=== PATIENT | male | born 2005 | race Caucasian/White ===

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

== ENCOUNTER 2024-07-28 15:18 | Emergency (ER) | payer OTHER, MEDICAID ==
[~2024-07-28] VITALS: Ht 170.2 cm; Wt 74.4 kg
[2024-07-28 15:29] VITALS: TEMP 98.8
[2024-07-28] MEDS ORDERED: IBUP-1985 PO (15:56)
[2024-07-28] MEDS ORDERED: METH-798 PO (15:56)
[2024-07-28 16:16] VITALS: BP 118/76; PULSE 72; RESP 16; O2SAT 95
== END 2024-07-28 16:34 | disposition home or self-care (01) ==
LOC: ER 15:18
DX: S13.4XXA Sprain of ligaments of cervical spine, initial encounter (principal); Z79.1 Long term (current) use of non-steroidal anti-inflammatories (NSAID); Z79.899 Other long term (current) drug therapy; V89.2XXA Person injured in unspecified motor-vehicle accident, traffic, initial encounter; Y93.89 Activity, other specified; Y92.89 Other specified places as the place of occurrence of the external cause; Y99.8 Other external cause status
CPT/HCPCS: 99283

== ENCOUNTER 2025-08-28 19:00 | Emergency (ER) | payer MEDICAID, OTHER ==
[~2025-08-28] VITALS: Ht 170.2 cm; Wt 71.0 kg
[~2025-08-28 19:00] MED LIST changes: +IBUP600T52 PO; +METH-798 PO
[2025-08-28 19:08] VITALS: BP 105/58; PULSE 82; RESP 18; O2SAT 99
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
--- NOTE | 2025-08-28 20:10 | RADIOLOGY REPORT ---
CLINICAL HISTORY: Traumatic injury, pain TECHNIQUE: 4 views of the right knee were obtained. WID: COMPARISON: KNEE, COMP 4 VW MIN on DOS: 07/06/21 FINDINGS: Normal mineralization alignment. Joint spaces are preserved. There is no acute fracture. Overlying soft tissues are intact. No joint effusion. IMPRESSION: 1. No acute osseous abnormality.
[2025-08-28 21:57] VITALS: TEMP 98.1
== END 2025-08-28 22:03 | disposition home or self-care (01) ==
LOC: ER 19:00
DX: M25.561 Pain in right knee (principal); Z79.899 Other long term (current) drug therapy
CPT/HCPCS: 29530; 73564; 99283; A6258; A6449

== ENCOUNTER 2025-09-05 14:12 | Emergency (ER) | payer MEDICAID, OTHER ==
[~2025-09-05] VITALS: Ht 167.6 cm; Wt 64.5 kg
[2025-09-05 14:25] VITALS: BP 110/69; PULSE 75; RESP 18; TEMP 98.4; O2SAT 99
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
== END 2025-09-05 16:12 | disposition home or self-care (01) ==
LOC: ER 14:13
DX: M25.561 Pain in right knee (principal); W19.XXXA Unspecified fall, initial encounter; Y93.89 Activity, other specified; Y92.89 Other specified places as the place of occurrence of the external cause; Y99.8 Other external cause status
CPT/HCPCS: 99282